=== PATIENT | male | born 1960 | race Caucasian/White ===

== ENCOUNTER 2023-12-17 09:06 | Inpatient (IN) | payer OTHER ==
[~2023-12-17] VITALS: Ht 165.1 cm; Wt 65.8 kg
[2023-12-17 09:17] VITALS: O2SAT 100
[2023-12-17 09:57] LABS: HEMATOCRIT 26.6 % (42.0-52.0); HEMOGLOBIN 8.6 g/dL (14.0-18.0); MEAN CORPUSCULAR HEMOGLOBIN 32.1 pg (28.0-32.0); MEAN CORPUSCULAR HGB CONC 32.3 g/dL (31.0-37.0); MEAN CORPUSCULAR VOLUME 99.3 fL (80.0-94.0); PLATELET 236 x1000/uL (130-400); RED BLOOD CELL COUNT 2.68 mill/uL (4.7-6.1); RED CELL DISTRIBUTION WIDTH 13.9 % (11.6-14.6); WHITE BLOOD COUNT 4.4 x1000/uL (4.5-11.0)
[2023-12-17] MEDS: SODIUM CHLORIDE 0.9% 1,000 ML IV ONE (10:03)
[2023-12-17 10:33] LABS: HEMATOCRIT. 26.6 % (42.0-52.0); HEMOGLOBIN. 8.6 g/dL (14.0-18.0)
[2023-12-17 10:34] LABS: ALANINE AMINOTRANSFERASE 40 IU/L (10-49); ALBUMIN 4.3 g/dL (3.2-4.8); ASPARTATE AMINOTRANSFERASE 19 IU/L (<34); BILIRUBIN TOTAL 0.2 mg/dL (0.1-1.0); CALCIUM 6.3 mg/dL (8.7-10.4); CARBON DIOXIDE 17 mEq/L (21-32); CHLORIDE 116 mEq/L (98-107); GLUCOSE 91 mg/dL (70-105); PROTEIN TOTAL 7.2 g/dL (6.0-8.3); SODIUM 142 mEq/L (136-145); TROPONIN I HIGH SENSITIVITY 24 ng/L (3.0-53); UREA NITROGEN BLOOD 78 mg/dL (9-23)
[2023-12-17 10:40] LABS: CREATININE 5.4 mg/dL (0.6-1.3); ETHANOL BLOOD < 10 mg/dL (<10)
[2023-12-17 10:41] LABS: CLARITY URINE CLEAR (CLEAR); COLOR URINE YELLOW (YELLOW); GLUCOSE URINE NEGATIVE (NEGATIVE); KETONES URINE NEGATIVE (NEGATIVE); LEUKOCYTE ESTERASE URINE NEGATIVE (NEGATIVE); NITRITE URINE NEGATIVE (NEGATIVE); OCCULT BLOOD URINE TRACE (NEGATIVE); PH URINE 5.5 (4.5-8.0); PROTEIN URINE 3+ (NEGATIVE); SPECIFIC GRAVITY URINE 1.012 (1.005-1.030); UROBILINOGEN URINE 0.2 E.U./dL (0.2-1.0)
[2023-12-17 10:57] LABS: ERYTHROCYTE SEDIMENTATION RATE 55 mm/hr (0-20)
[2023-12-17] MEDS: HYDRALAZINE 20MG/ML VIAL IV NR (11:00)
[2023-12-17] MEDS ORDERED: ALBUTEROL (0.083%) 2.5MG/3ML NEB HHN NR (11:00)
[2023-12-17] MEDS: INSULIN REGULAR (HUMULIN R) 300UNITS/3ML VIAL IV NR (11:00)
[2023-12-17 11:09] LABS: *AMPHETAMINES SCREEN URINE NEGATIVE (NEGATIVE); *BARBITURATES SCREEN URINE NEGATIVE (NEGATIVE); *BENZODIAZEPINES SCREEN URINE NEGATIVE (NEGATIVE); *COCAINE SCREEN URINE NEGATIVE (NEGATIVE); CANNABINOID URINE SCREEN NEGATIVE (NEGATIVE); ECSTASY MDMA SCREEN URINE NEGATIVE (NEGATIVE); METHADONE URINE SCREEN Neg (NEGATIVE); OPIATES URINE SCREEN NEGATIVE (NEGATIVE); PHENCYCLIDINE URINE SCREEN NEGATIVE (NEGATIVE)
[2023-12-17 11:20] LABS: CREATINE KINASE 535 IU/L (46-171)
[2023-12-17] MEDS: SODIUM BICARBONATE 8.4% 1 MEQ/ML 50ML SYR IV NR (11:39)
[2023-12-17] MEDS: CALCIUM CHLORIDE 1GM/10ML SYR IV NR (11:39)
[2023-12-17] MEDS: DEXTROSE 50% WATER 50ML SYRINGE IV NR (11:39)
[2023-12-17] MEDS: SODIUM POLYSTYRENE SULFONATE 15 G/60 ML BOT PO NR (11:39)
[2023-12-17 12:08] LABS: PLATELET ESTIMATE NORMAL
[2023-12-17 12:15] LABS: BACTERIA URINE NONE SEEN; RBC URINE 0-2 /hpf (0-2); SQUAMOUS EPITHELIAL CELL URINE NONE SEEN /lpf (RARE/1+); WBC URINE 0-2 /hpf (0-2)
[2023-12-17] MEDS ORDERED: DEXTROSE 50% WATER 50ML SYRINGE IV PRN (14:15)
[2023-12-17] MEDS ORDERED: ACETAMINOPHEN 325MG TABLET PO PRN ×2 (14:15)
[2023-12-17] MEDS ORDERED: MAGNESIUM/ALUMINUM HYDROXIDE/SIMETHICONE 30ML UDC PO PRN (14:15)
[2023-12-17] MEDS ORDERED: DOCUSATE SODIUM 100MG CAPSULE PO PRN (14:15)
[2023-12-17] MEDS ORDERED: LISINOPRIL 10MG TABLET PO SCH (14:30)
[2023-12-17] MEDS ORDERED: AMLODIPINE 10MG TABLET PO SCH (15:45)
[2023-12-17] MEDS: BLOOD SUGAR DIAGNOSTIC STRIP TEST SCH (16:45)
[2023-12-17] MEDS ORDERED: BLOOD SUGAR DIAGNOSTIC STRIP TEST SCH (17:00)
[2023-12-17 17:30] LABS: CALCIUM 6.5 mg/dL (8.7-10.4); PHOSPHORUS 4.8 mg/dL (2.5-4.9); POTASSIUM 5.3 mEq/L (3.5-5.1)
[2023-12-17 17:37] LABS: CREATININE 5.1 mg/dL (0.6-1.3)
[2023-12-17] MEDS: AMLODIPINE 2.5MG TABLET PO SCH (18:12)
[2023-12-17] MEDS ORDERED: ROSU20TA2 PO (18:15)
[2023-12-17] MEDS ORDERED: GLIP5TAB22 PO (18:15)
[2023-12-17] MEDS ORDERED: LISI10TA26 PO (18:15)
[2023-12-17] MEDS ORDERED: AMLO5TAB88 PO (18:15)
[2023-12-17] MEDS ORDERED: TERA2CAP4 PO (18:15)
[2023-12-17 19:00] VITALS: BP 121/67; PULSE 78; RESP 18; TEMP 98.2
[2023-12-17 20:00] VITALS: BP 121/67; PULSE 78; RESP 19; TEMP 98.2
[2023-12-17] MEDS: ATORVASTATIN CALCIUM 20MG TABLET PO SCH (21:36)
[2023-12-17] MEDS: INSULIN LISPRO 100 UNITS/ML SUBCUT SCH (21:40)
[2023-12-18] VITALS: BP 144/69; PULSE 71; RESP 19; TEMP 98.3
[2023-12-18 04:00] VITALS: BP 154/80; PULSE 69; RESP 18; TEMP 97.2
[2023-12-18 07:01] LABS: EOSINOPHILS % 1.9 % (0.0-5.0); HEMATOCRIT. 22.1 % (42.0-52.0); HEMOGLOBIN. 7.2 g/dL (14.0-18.0); LYMPHOCYTES % 27.5 % (20.0-50.0); MEAN CORPUSCULAR HEMOGLOBIN 32.7 pg (28.0-32.0); MEAN CORPUSCULAR HGB CONC 32.7 g/dL (31.0-37.0); MONOCYTES % 8.2 % (2.0-8.0); NEUTROPHILS % 61.4 % (40.0-76.0); PLATELET 205 x1000/uL (130-400); RED BLOOD CELL COUNT 2.22 mill/uL (4.7-6.1); RED CELL DISTRIBUTION WIDTH 13.6 % (11.6-14.6); WHITE BLOOD COUNT 4.3 x1000/uL (4.5-11.0)
[2023-12-18 07:40] LABS: CALCIUM 6.1 mg/dL (8.7-10.4); POTASSIUM 5.9 mEq/L (3.5-5.1); THYROID STIMULATING HORMONE 0.88 uIU/mL (0.55-4.78)
[2023-12-18 07:42] LABS: CREATININE 5.2 mg/dL (0.6-1.3)
[2023-12-18 08:00] VITALS: BP 103/69; PULSE 67; RESP 18; TEMP 97.6
[2023-12-18] MEDS: ASPIRIN 81MG TABLET PO SCH (08:14)
[2023-12-18] MEDS ORDERED: NITROGLYCERIN 0.4MG TABLET SL SL PRN (08:30)
[2023-12-18] MEDS ORDERED: ZOLPIDEM TARTRATE 5MG TABLET PO PRN (08:30)
[2023-12-18 08:47] LABS: FOLIC ACID (FOLATE) SERUM > 20.00 ng/mL (>5.38); VITAMIN B12 SERUM 712 pg/mL (211-911)
[2023-12-18] MEDS: CITRIC ACID/SODIUM CITRATE SOLN 30ML UDC PO SCH (09:38)
[2023-12-18] MEDS: FAMOTIDINE 20MG TABLET PO SCH (09:39)
[2023-12-18 09:51] LABS: BG BASE EXCESS -7.1 mmol/L (-2.0-2.0); BG CARBOXYHEMOGLOBIN 0.3 % (0.5-1.5); BG DEOXYHEMOGLOBIN 2.2 % (0.0-5.0); BG FRACTION INSPIRED OXYGEN 21; BG HCO3 ACT 17.3 mmol/L (22.0-26.0); BG METHEMOGLOBIN 0.3 % (0.0-1.5); BG OXYGEN SATURATION 97.8 % (92.0-98.5); BG OXYHEMOGLOBIN 97.2 % (94.0-97.0); BG PCO2 30.2 mmHg (35.0-45.0); BG PH 7.375 (7.350-7.450); BG PO2 116.9 mmHg (75.0-100.0); BG SAMPLE SITE RIGHT BRACHIAL; BG TOTAL HEMOGLOBIN 8.2 g/dL (12.0-18.0); BG VENT MODE ROOM AIR
[2023-12-18 11:54] VITALS: BP 154/71; PULSE 66; RESP 18; TEMP 97.9
[2023-12-18 12:41] LABS: IRON 89 ug/dL (65-175); PHOSPHORUS 4.3 mg/dL (2.5-4.9); TOTAL IRON BINDING CAPACITY 210 ug/dl (250-425)
[2023-12-18] MEDS: SODIUM POLYSTYRENE SULFONATE 15 G/60 ML BOT PO NR (13:29)
[2023-12-18] MEDS: CALCIUM GLUCONATE 1GM PREMIX 50 ML IV NR (15:00)
[2023-12-18 16:00] VITALS: BP 168/71; PULSE 68; RESP 20; TEMP 98.6
[2023-12-18] MEDS: CALCIUM CARBONATE 500MG TABLET CHEW PO SCH (17:49)
[2023-12-18 20:00] VITALS: BP 167/79
[2023-12-18] MEDS: HYDRALAZINE 20MG/ML VIAL IV NR (20:18)
[2023-12-18] MEDS ORDERED: EPOETIN ALFA 4000UNITS/ML VIAL SUBCUT NR (21:00)
== END 2023-12-18 20:30 | disposition short-term general hospital (02) | DRG 637 ==
LOC: ER 09:06 → EDBEDREQ 10:39 → 5WST 12:39 → EDBEDREQTM 12:45 → EDBEDREQ 12:45 → 7EST 17:50
PROVIDERS: ADMIT Internal Medicine; ATTEND Internal Medicine
DX: E11.649 Type 2 diabetes mellitus with hypoglycemia without coma (principal); G92.8 Other toxic encephalopathy; E87.20 Acidosis, unspecified; I12.0 Hypertensive chronic kidney disease with stage 5 chronic kidney disease or end stage renal disease; N17.9 Acute kidney failure, unspecified; E83.51 Hypocalcemia; D64.9 Anemia, unspecified; Z20.822 Contact with and (suspected) exposure to COVID-19; E78.5 Hyperlipidemia, unspecified; G45.9 Transient cerebral ischemic attack, unspecified; R29.810 Facial weakness; E87.6 Hypokalemia; E11.21 Type 2 diabetes mellitus with diabetic nephropathy; N18.5 Chronic kidney disease, stage 5; Z79.4 Long term (current) use of insulin; Z79.82 Long term (current) use of aspirin; Z79.84 Long term (current) use of oral hypoglycemic drugs; Z79.899 Other long term (current) drug therapy
CPT/HCPCS: 36415; 36600; 70551; 71045; 76770; 80048; 80053; 80305; 80320; 81003; 82375; 82550; 82607; 82746; 82805; 82962; 83036; 83540; 83550; 83605; 83970; 84100; 84145; 84443; 84484; 85007; 85025; 85027; 85379; 85651; 87426; 93005; 99285; J0360; J0610; J0885; J1815; J3490; G0480